=== PATIENT | male | born 1965 | race Two or more races ===

== ENCOUNTER 2018-09-11 00:07 | Emergency (ER) | payer OTHER ==
[~2018-09-11] VITALS: Ht 172.7 cm; Wt 88.0 kg
[2018-09-11] MEDS ORDERED: KETO10TA2 PO (02:45)
== END 2018-09-11 02:49 | disposition home or self-care (01) ==
LOC: ER 00:07
DX: M75.51 Bursitis of right shoulder (principal); M25.511 Pain in right shoulder